=== PATIENT | female | born 1985 | race African-American/Black ===

== ENCOUNTER 2018-08-27 09:14 | Emergency (ER) | payer BC, OTHER ==
[2018-08-27] MEDS ORDERED: Acetaminophen TAB* 325 MG PO ONE (09:30)
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
[2018-08-27 11:01] VITALS: BP 137/83
== END 2018-08-27 11:00 | disposition home or self-care (01) ==
LOC: ED 09:14
DX: M25.552 Pain in left hip (principal); R68.84 Jaw pain; V77.6XXA Passenger on bus injured in collision with fixed or stationary object in traffic accident, initial encounter; Y92.9 Unspecified place or not applicable
CPT/HCPCS: 70110; 99283; A9270-GY